=== PATIENT | male | born 1945 | race Caucasian/White ===

== ENCOUNTER 2024-10-07 09:52 | Outpatient (REF) | payer OTHER, SELFPAY | END 2024-10-07 09:53 | disposition home or self-care (01) | LOC: HO.HOSX 09:52 | PROVIDERS: Visit Provider Orthopaedic Surgery | DX: Z13.89 Encounter for screening for other disorder (principal) ==

== ENCOUNTER 2024-11-19 09:17 | Outpatient (REF) | payer MEDICARE, OTHER, SELFPAY ==
--- NOTE | ~2024-11-19 | XR_ITS ---
CLINICAL HISTORY: M25.511 - Pain in right shoulder 2 view right shoulder Comparison: None Findings: Moderate to marked osteoarthritis of the right AC joint. Mild osteoarthritis right glenohumeral joint with minimal superior subluxation. Mid clavicle diaphysis deformity appears old/chronic with remodeling. No acute fracture or dislocation. Zipper opacities noted. Mild bibasilar atelectasis in the [id number]. IMPRESSION: 1. 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 2. [id number] osteoarthritis of the right acromioclavicular joint. This document has been electronically signed by: Cong Barber MD on 11/22/2024 19:29:36
== END 2024-11-19 09:18 | disposition home or self-care (01) ==
LOC: HO.HOSX 09:17
PROVIDERS: Visit Provider Orthopaedic Surgery
DX: M25.511 Pain in right shoulder (principal); M19.011 Primary osteoarthritis, right shoulder
CPT/HCPCS: 73030; 99202

== ENCOUNTER 2024-11-19 13:38 | Outpatient (AMB) | payer MEDICARE, OTHER, SELFPAY ==
--- NOTE | 2024-11-19 13:41 | MHC.OFFVIS ---
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 The patient states that he injured his shoulder approximately 10 years ago when he fell on cement. The patient states that he fell directly onto his right shoulder. Since that time he has had difficulty lifting his right hand above shoulder height. He has failed the last 3 months of conservative treatment which has consisted of topical creams, physical therapy exercises, Tylenol and anti-inflammatory medicines. The patient denies any numbness or tingling in either of his upper extremities. Allergies No Known Allergies Allergy (Verified 11/19/24 13:55) Medication List - Last Reconciled 11/19/24 by Dm Carrasco MD No Known Home Meds [facility] Social History Current occupation: rt handed Physical Exam Const Other: Well-nourished well-developed very friendly male awake alert and oriented x3 in no acute distress Extrem Other: Bilateral upper extremity examination shows good capillary refill, no skin lesions noted, normal sensation light touch Right shoulder examination shows full passive range of motion but limited active range of motion when compared to his left shoulder, deformity of the patient's proximal biceps and deltoid muscle, no overlying skin lesions, tenderness over his acromioclavicular joint, 2/5 strength with supraspinatus testing Results Reviewed Results Reviewed: X-rays of the patient's right shoulder show moderate to severe acromioclavicular joint narrowing, a type 2 acromion, no acute bony abnormalities Assessment & Plan Assessment & Plan (1) Rotator cuff insufficiency of right shoulder: Code(s): M25.311 - Other instability, right shoulder Category: Medical Plan Ms. De La Torre presents with chronic right shoulder pain and weakness most likely due to chronic rotator cuff tearing and possible deltoid muscle injury. Thus, I will send the patient for an MRI of his right shoulder for further evaluation. I will contact him by phone once the MRI results are available. Will continue with his range of motion exercises in the meantime to prevent stiffness. Feel free to call me at any time should questions regarding his orthopedic management arise. Thank you very much for asking me to see this very friendly gentleman. I spent 21 minutes in reviewing the patient's records and imaging studies, seeing the patient and documenting in the medical record. Orders: Orders MR shoulder RT wo con Today M25.311 - Other instability, right shoulder XR shoulder RT min 2V Today M25.511 - Pain in right shoulder Coding Level of Care Code New Pt Level 3 (99230) Complex EM visit Add On G2211 Diagnoses Rotator cuff insufficiency of right shoulder M25.311
[2024-11-19 13:56] VITALS: BMI 24.4
== END 2024-11-19 14:04 | disposition home or self-care (01) ==
PROVIDERS: PCP Pediatrics; Visit Provider Orthopaedic Surgery
DX: M25.311 Other instability, right shoulder (principal)
CPT/HCPCS: 99203; G2211

== ENCOUNTER → 2024-11-19 13:42 | Outpatient (BNV) | payer MEDICARE, OTHER, SELFPAY | PROVIDERS: Visit Provider Radiology Neuroradiology | DX: M25.511 Pain in right shoulder (principal) | CPT/HCPCS: 73030 ==

== ENCOUNTER → 2024-11-26 13:43 | Outpatient (BNV) | payer MEDICARE, OTHER, SELFPAY | PROVIDERS: PCP Pediatrics; Visit Provider Radiology Diagnostic Radiology | DX: M25.311 Other instability, right shoulder (principal) | CPT/HCPCS: 73221 ==

== ENCOUNTER 2024-11-26 13:55 | Outpatient (REF) | payer MEDICARE, OTHER, SELFPAY ==
--- NOTE | ~2024-11-26 | MR_ITS ---
CLINICAL HISTORY: M25.311 - Other instability, right shoulder MR right shoulder without gadolinium Comparison: Radiographs right shoulder 11/19/2024 Findings: There is significant elevation of the humeral head in relationship to the acromion and glenoid. There are distal clavicle and adjacent acromial osteophytes. There are osteophytes and small osteochondral lesions humeral head. The exam is somewhat limited due to motion artifact. There is full-thickness tears of the supraspinatus and infraspinatus tendon. There is significant atrophy of the supraspinatus and infraspinatus muscles. There is retraction of the tendon fibers between 2-3 cm. The subscapularis and teres minor tendons are intact. There is small bicipital tendon with increased T2 signal with. The tendon is subluxed anterior medially from the bicipital tendon groove. There is glenohumeral osteoarthrosis with glenoid and humeral head articular defects. There is significant flattening and degeneration of the anterior and posterior labrum. There is a small joint effusion. IMPRESSION: Significant AC joint osteoarthrosis. Elevation of the humeral head in relationship to the acromion and glenoid with full-thickness tears of the supraspinatus and infraspinatus tendons, significant atrophy of the supraspinatus and infraspinatus muscles with significant tendon retraction as above. Glenohumeral osteoarthrosis with glenoid articular defects, humeral head articular defects and greater tuberosity articular and small osteochondral defects Bicipital tenosynovitis, medial subluxation of the bicipital tendon, possible partial, cannot exclude full-thickness bicipital tendon tear. Significant labral degeneration findings suspicious for labral degenerative tears. This document has been electronically signed by: Grzegorz Mar MD on 11/28/2024 09:03:43
== END 2024-11-26 13:56 | disposition home or self-care (01) ==
LOC: HO.MRI 13:55
PROVIDERS: PCP Pediatrics; Visit Provider Orthopaedic Surgery
DX: M25.311 Other instability, right shoulder (principal)
CPT/HCPCS: 73221

== ENCOUNTER 2025-01-09 13:41 | Outpatient (AMB) | payer MEDICARE, OTHER, SELFPAY ==
--- NOTE | 2025-01-09 13:43 | MHC.OFFVIS ---
Intake Visit Reasons: OV - Right Shoulder MRI Review - Per Dr. Carrasco Intake Note: Bree is a 79 year old right hand dominant male who presents today as a Dr. Carrasco referral to discuss possible surgical intervention of his Right Shoulder. Patient reports that he injured the shoulder about 10 years ago due to a fall. IMPRESSION: Significant AC joint osteoarthrosis. Elevation of the humeral head in relationship to the acromion and glenoid with full-thickness tears of the supraspinatus and infraspinatus tendons, significant atrophy of the supraspinatus and infraspinatus muscles with significant tendon retraction as above. Glenohumeral osteoarthrosis with glenoid articular defects, humeral head articular defects and greater tuberosity articular and small osteochondral defects Bicipital tenosynovitis, medial subluxation of the bicipital tendon, possible partial, cannot exclude full-thickness bicipital tendon tear. Significant labral degeneration findings suspicious for labral degenerative tears. Allergies No Known Allergies Allergy (Verified 11/19/24 13:55) HPI HPI OV - Right Shoulder MRI Review - Per Dr. Carrasco: Details: This is a 79 yo who comes in today for right shoulder MRI review. He has seen Dr Carrasco and has RTC arthropathy of the right shoulder. He has a very hard time lifting his right arm above his head but he isn't bothered by it. He works on his yard and has minimal pain. e patient states that he fell directly onto his right shoulder. Since that time he has had difficulty lifting his right hand above shoulder height. He has tried topical creams, physical therapy exercises, Tylenol and anti-inflammatory medicines. [facility] Social History (Updated 11/19/24 @ 13:56 by DHRUV López) Current occupation: rt handed Physical Exam Extrem Other: Scapular recruitment required for minimal abduction. + drop arm Results Reviewed Results Reviewed: I personally reviewed the MR images. RTC arthropathy with retracted RTC tear and HH elevation Assessment & Plan Assessment & Plan (1) Rotator cuff arthropathy of right shoulder: Code(s): M12.811 - Other specific arthropathies, not elsewhere classified, right shoulder Category: Medical Plan: && yo RHD m with RTC arthropathy. Its been getting worse but he states its tolerable. I discussed treatment option including injections and surgery. I explained the r/b/a of surgery. He is not interested in surgery. He doesn't describe pain and will let me know if something changes but at this point he should follow up PRN. Coding Level of Care Code Est Pt Level 4 (34813) Diagnoses Rotator cuff arthropathy of right shoulder M12.811
--- OUTSIDE RECORDS SUMMARY | 2025-01-09 16:29 | XMS_ITS | Clinical Summary ---
Author Organization [facility] [address] [facility] [address] Address [address] [place] [address] Phone Care Team Providers Care Tonger Name Role Phone Holly Funes MD Primary Care Provider [phone] Allergies Active Allergy Reactions Criticality Noted Date Comments Tetanus Toxoid Swelling 03/12/2008 chills Medications ibuprofen (ADVIL,MOTRIN) 200 mg tablet Take 1 tablet (200 mg total) by mouth every 6 (six) hours if needed. Active Active Problems Problem Noted Date Diagnosed Date Colon cancer screening 09/23/2024 Overview (09/23/2024): Family hx colon cancer, Brother, sister. Colonoscopy 03/03/17- f/u 3 years, multiple polyps, diverticulosis 01/31 Colonoscopy neg. Repeat 5 yrs Urinary retention 08/27/2019 Overview (08/27/2024): Hosp 08/01. Ecoli sepsis. Urology. PSA 48. Prob prostatitis. Gall bladder polyp 08/26/2019 Overview (08/27/2024): 05/31. 2 small (<5 mm). Repeat u/s 12 mo then no further testing if stable. Ascending aorta dilatation 07/20/2019 Overview (08/27/2024): 08/01. 4.1 cm aortic root, 3.8 cm ascending, 3.1 arch 03/03 4.1 cm root, 4.1 cm ascending, 06/04 - stable size Subclinical hyperthyroidism 06/04/2019 Overview (08/27/2024): Borderline low tsh 05/31 Abnormal ultrasound of abdomen 06/04/2019 Overview (08/27/2024): 05/31 Small GB polyps, renal cysts. Repeat 12 mo. Abnormal CXR 06/04/2019 Overview (08/27/2024): ?mild cardiomegaly Epididymal cyst 08/24/2016 Overview (08/27/2024): Bilateral Nasal septum perforation 03/27/2011 Immunizations Name Administration Dates Next Due Td Tetanus diptheria (Tdvax) 7yo and older 12/15 Surgical History Surgery Date Site/Laterality Comments COLONOSCOPY 03/03/17 PROCEDURE: HISTORICAL COLONOSCOPY; COMMENT: adenomas and tics; repeat in 3 yrs COLONOSCOPY 01/26/2021 PROCEDURE: HISTORICAL COLONOSCOPY; COMMENT: no polyps Medical History Medical History Date Comments Varicose veins of legs DX:Varico se veins of legs Plantar fasciitis DX:Plantar fas ciitis Nasal septum perforation 03/27/2011 DX:Nasa l septum perforation Family History Medical History Relation Name Comments Colon cancer Brother 1 Liver cancer Sister 1 Relation Name Status Comments Brother 1 Alive colon cancer (d x'd ?64) Brother 2 Alive Brother 3 Alive Father (Age 96) old age Mother (Age 48) accident Sister 1 Sister 2 Alive Social History Tobacco Use Types Packs/Day Years Used Date Smoking Tobacco: Never Smokeless Tobacco: Never Alcohol Use Standard Drinks/Week Comments Not Currently 0 (1 standard drink = 0.6 oz pur e alcohol) Sex and Gender Information Value Date Recorded Sex Assigned at Not on file Legal Sex Male 5:58 PM EST Gender Identity Not on file Sexual Orientation Not on file Obstetrics History Last Filed Vital Signs Vital Sign Reading Time Taken Comments Blood Pressure 136/70 09/25/2024 1:18 PM EST Pulse 61 03/26/2024 2:55 PM EDT Temperature 36.7 ??C (98 ??F) 09/25/2024 1:18 PM EST Respiratory Rate - - Oxygen Saturation - - Inhaled Oxygen Concentration - - Weight 82.1 kg (181 lb) 09/25/2024 1:18 PM EST Height 182.9 cm (6') 09/25/2024 1:18 PM EST Body Mass Index 24.55 09/25/2024 1:18 PM EST Plan of Treatment Health Maintenance Due Date Last Done Comments Pneumococcal Vaccine: 50+ Years (1 of 1 - PCV) 1997 Zoster Vaccines (1 of 2) 1997 DTaP,Tdap,and Td Vaccines (2 - Td or Tdap) 12/15/2014 12/15/2004 Depression Screening 10/22/2022 Falls Risk Assessment 10/22/2022 Medicare Annual Wellness Visit 10/22/2022 Social Influencers of Health Screening 10/22/2022 RSV Immunization Patients 60 + Years Old (1 - 1-dose 75+ series) 2022 COVID-19 Vaccine ( - 2023-2 5 season) 2024 Influenza Vaccine (#1) 2024 Cholesterol Screening (Lipid Panel) 09/25/2029 09/25/2024, 06/29/2023 Colorectal Cancer Screening: Colonoscopy 01/26/2031 01/26/2021 Hepatitis C Screening Completed 06/13/2013 HIB Vaccines Aged Out No longer eligi ble based on patient's age to complete this topic HPV Vaccines Aged Out No longer eligi ble based on patient's age to complete this topic Hepatitis A Vaccines Aged Out No long er eligible based on patient's age to complete this topic Hepatitis B Vaccines Aged Out No long er eligible based on patient's age to complete this topic IPV Vaccines Aged Out No longer eligi ble based on patient's age to complete this topic MMR Vaccines Aged Out No longer eligi ble based on patient's age to complete this topic Meningococcal ACWY Vaccine Aged Out N o longer eligible based on patient's age to complete this topic Meningococcal B Vacine Aged Out No lo nger eligible based on patient's age to complete this topic RSV Immunization Patients Under 20 months Aged Out No longer eligible b ased on patient's age to complete this topic Varicella Vaccines Aged Out No longer eligible based on patient's age to complete this topic Procedures Procedure Name Priority Date/Time Associated Diagnosis Comments HELICOBACTER PYLORI BREATH TEST Routine 11/12/2024 11:07 AM EST H. pylori infection LIPID PANEL WITH REFLEX TO DIRECT LDL Routine 09/25/2024 1:40 PM EST Lipid screening HM COLONOSCOPY Routine 01/26/2021 HEPATITIS C SCREENING Routine 06/13/2013 from Last 3 Months or Most Recently Relevant to Health Maintenance Results * Helicobacter pylori breath test (11/12/2024 11:07 AM EST) H Pylori Breath Test Negative Negative LAB CHEMISTRY METHOD 11/12/2024 2:22 PM EST [facility] Breath Oral cavity structure / Unknown Non-blood Collection / Unknown 11/12/2024 11:07 AM EST 11/12/2024 11:07 AM EST Henrietta [facility] BODY FLUIDS AND STOOLS ORDER ZHOU Final Result [facility] [address] [place] [address], [place] [phone] * (ABNORMAL) Lipid panel with reflex to direct LDL (09/25/2024 1:40 PM EST) Cholesterol 206(H) 0 - 200 mg/dL LAB CHEMISTRY METHOD 09/25/2024 5:01 PM EST [facility] Triglycerides 146 0 - 150 mg/dL LAB CHEMISTRY METHOD 09/25/2024 5:01 PM EST [facility] HDL 44 >=40 mg/dL LAB CHEMISTRY METHOD 09/25/2024 5:01 PM EST [facility] LDL Calculated 133(H) 0 - 100 mg/dL LAB CHEMISTRY METHOD 09/25/2024 5:01 PM EST [facility] VLDL Cholesterol Thomas 29.2 mg/dL LAB CHEMISTRY METHOD 09/25/2024 5:01 PM EST [facility] Non HDL Chol. (LDL+VLDL) 162(H) <145 mg/dL LAB CHEMISTRY METHOD 09/25/2024 5:01 PM EST [facility] Chol/HDL Ratio 4.7(H) 0.0 - 4.4 LAB CHEMISTRY METHOD 09/25/2024 5:01 PM EST [facility] Blood Venous blood specimen / Unknown Venipuncture / Unknown 09/25/2024 1:40 PM EST 09/25/2024 1:40 PM EST Henrietta [facility] BLOOD ORDERABLES Final Resul t [facility] [address] [place] [address], [place] [phone] * Colonoscopy (01/26/2021) Colonoscopy no interpretation , abstracted Anatomical Region Laterality Modality Other Historical Provider HEALTH MAINTENANCE Final Result * Hepatitis C Screening (06/13/2013) Pathologist [facility] Hepatitis C Screening abstracted Historical Provider HEALTH MAINTENANCE Final Result from Last 3 Months or Most Recently Relevant to Health Maintenance Insurance MEDICARE [employer] Care Teams Tonger Relationship Specialty Start Date End Date Holly Funes MD [address] [place] [id number] PCP - General Internal Medicine 02/20/14
== END 2025-01-09 14:10 | disposition home or self-care (01) ==
PROVIDERS: PCP Pediatrics; Visit Provider Orthopaedic Surgery
DX: M12.811 Other specific arthropathies, not elsewhere classified, right shoulder (principal)
CPT/HCPCS: 99214

== ENCOUNTER → 2025-01-09 13:41 | Outpatient (BNVA) | payer MEDICARE, OTHER, SELFPAY | PROVIDERS: PCP Pediatrics; Visit Provider Orthopaedic Surgery | DX: M12.811 Other specific arthropathies, not elsewhere classified, right shoulder (principal) | CPT/HCPCS: 99212 ==